=== PATIENT | female | born 1960 | race Caucasian/White ===

== ENCOUNTER → 2017-07-10 | Outpatient (CLI) | payer OTHER ==
[~2017-07-10] MED LIST: ALBUAER3 INH; LEVA750T9 PO; SYMB80AE INH
--- NOTE | 2017-07-13 10:38 | RSPPFT ---
DATE OF PROCEDURE: 07/10/17 COMMENTS: Spirometry with FVC of 2.5, FEV1 of 1.4, FEV1/FVC ratio at 56% of predicted. Slow vital capacity is 58% of predicted. TLC is 100%. Diffusion capacity is 47% of predicted. IMPRESSION: 1. Moderately severe airways obstruction. 2. Positive and significant response to acutely inhaled bronchodilator. 3. No evidence of airways restriction. 4. Moderate reduction in diffusion capacity.
== END ==
LOC: HRSP 11:26
PROVIDERS: ATTEND Specialist
DX: J44.9 Chronic obstructive pulmonary disease, unspecified (principal)
CPT/HCPCS: 94060; 94726; 94729

== ENCOUNTER 2017-07-29 09:35 | Inpatient (IN) | payer OTHER ==
[2017-07-29 09:48] VITALS: BP 123/95; PULSE 82; RESP 18; TEMP 97.7; O2SAT 96
[2017-07-29] MEDS ORDERED: LORA-392 PO (09:56)
[2017-07-29] MEDS ORDERED: NICO21DI2 T-DERMAL (09:57)
[2017-07-29 10:00] VITALS: PULSE 96
--- NOTE | 2017-07-29 11:07 | MH ---
cc: MELI DIXON M.D. DATE OF ADMISSION: 07/29/2017 DATE OF 1960 ADMISSION DIAGNOSES 1. Locally advanced nql-wdndu-pdai lung cancer. 2. Chronic tobacco use. 3. COPD. 4. Cardiomyopathy, EF of 20%. CHIEF COMPLAINT Shortness of breath. HISTORY OF PRESENT ILLNESS Ms. Sam is a 56-year-old woman with a history of chronic tobacco use. She presents with unintentional weight loss, COPD exacerbation in a hilar mass. She underwent bronchoscopic evaluation and was diagnosed with a non-small cell lung cancer, adenocarcinoma poorly differentiated. She was referred to Dr. Ahumada. During workup she was found to have elevated BNP and echo showed a decrease in ejection fraction to 20-25%. Ms. Sam denies any prior history of coronary artery disease. She has no prior history of CT. This made her not eligible for definitive lung resection. She has had progressive symptoms of shortness of breath attributed to her COPD but in light of her cardiomyopathy she is admitted for further cardiac evaluation. She denies any fevers, chills or night sweats. She has progressive weight loss. She is unable to work because of her respiratory symptoms. She reports occasional chest pain atypical in nature. She denies any urinary complaints. No headaches. No vision changes. She is very anxious about her diagnosis of lung cancer and is eager to have definitive treatment. PAST MEDICAL HISTORY 1. Anxiety. 2. COPD. 3. Thyroid disease. 4. Locally advanced wdb-npwhw-ljgh lung cancer unresectable due to cardiac issue. PAST SURGICAL HISTORY 1. . 2. Colposcopy. FAMILY HISTORY She is adopted. No family history known. SOCIAL HISTORY She is /has significant other. She continues to smoke. She denies any illicit drug use. She drinks alcohol occasionally. PHYSICAL EXAMINATION VITAL SIGNS: Temperature 97.7 heart rate 82, respiratory 18, blood pressure 123/95, saturation 96%. GENERAL: Ms. Sam is a slender, tall woman who looks anxious. She looks older than stated age. HEENT: Her pupils are round, reactive to light and accommodation. Oropharynx is clear. NECK: Supple. LUNGS: With diminished breath sounds throughout. No wheezing. CARDIOVASCULAR: Exam reveals normal rate and rhythm. ABDOMEN: Benign. LOWER EXTREMITIES: With no edema. NEUROLOGICAL: Exam is nonfocal. ALLERGIES No known drug allergies. CURRENT MEDICATIONS 1. Nicotine 2. Symbicort. 3. Albuterol. 4. Lorazepam p.r.n. ASSESSMENT AND PLAN Ms. Sam is a 56-year-old woman with chronic tobacco use, severe COPD, left hilar mass diagnosed with a poorly differentiated non-small cell lung cancer. She has a decrease in ejection fraction. She had increasing symptoms of shortness of breath and atypical chest symptoms. In light of her decreased ejection fraction she is admitted to the hospital for further evaluation. Treatment for COPD will be optimized. Respiratory treatments, inhaled steroids as well as albuterol/DuoNebs will be administered. BNP, troponin-I, EKG and cardiology will be consulted to evaluate the cardiomyopathy. Defer to cardiology for further recommendations for the cardiomyopathy. Her non-small cell lung cancer is being considered for treatment with concurrent chemotherapy and radiation. The safety of chemotherapy depends on the cardiomyopathy. We will consider concurrent chemotherapy and radiation with carboplatin and Taxol pending of course findings from Cardiology and their recommendations. Meli Dixon MD RAD/RUPESH /10:41 AM /10:54 AM
[2017-07-29] MEDS: LORazepam 0.5 MG TAB PO PRN ×2 (11:34→20:08)
[2017-07-29 11:39] VITALS: BP 156/112; PULSE 71; RESP 18; TEMP 97.7; O2SAT 97
[2017-07-29 12:00] LABS: AUTOMATED NEUTROPHIL # 4.6 TH/MM3 (1.8-7.7); BASOPHIL # 0.1 TH/MM3 (0-0.2); BASOPHIL % 0.8 % (0.0-2.0); EOSINOPHIL # 0.1 TH/MM3 (0-0.4); HEMO FLAGS DIFF FINAL; LYMPH % 27.1 % (9.0-44.0); MEAN CELL VOLUME 103.9 FL (80.0-100.0); MEAN CORPUSCULAR HEMOGLOBIN 35.8 PG (27.0-34.0); MEAN CORPUSCULAR HGB CONC 34.4 % (32.0-36.0); MONO % 6.7 % (0.0-8.0); NEUT % 63.4 % (16.0-70.0); PLATELET COUNT 129 TH/MM3 (150-450); RED BLOOD COUNT 4.14 MIL/MM3 (4.00-5.30); RED CELL DISTRIBUTION WIDTH 14.1 % (11.6-17.2); WHITE BLOOD COUNT 7.3 TH/MM3 (4.0-11.0)
[2017-07-29] MEDS ORDERED: ALBUTEROL SULFATE 90 MCG/ACT HFA 8 GM INHALER INH PRN (12:00)
[2017-07-29] MEDS ORDERED: PROCHLORPERAZINE INJ 10 MG/2 ML VIAL IV PUSH PRN (12:00)
[2017-07-29] MEDS ORDERED: ALTEPLASE RECOMBINANT 2 MG VIAL IVF PRN (12:00)
[2017-07-29] MEDS ORDERED: ACETAMINOPHEN 325 MG TAB PO PRN (12:00)
[2017-07-29] MEDS ORDERED: ALUMINUM/MAGNESIUM/SIMETH 30 ML CUP PO PRN (12:00)
[2017-07-29] MEDS ORDERED: MAGNESIUM HYDROXIDE SUSP 30 ML CUP PO PRN (12:00)
[2017-07-29 12:25] LABS: ALKALINE PHOSPHATASE 83 U/L (45-117); TOTAL BILIRUBIN ADULT 0.5 MG/DL (0.2-1.0)
[2017-07-29] MEDS ORDERED: ENALAPRILAT 1.25 MG/ML VIAL IV PUSH PRN (13:00)
[2017-07-29 13:51] LABS: ALT (GPT) 19 U/L (10-53); ANION GAP 6 MEQ/L (5-15); AST (GOT) 15 U/L (15-37); BICARBONATE 27.9 MEQ/L (21.0-32.0); BLOOD UREA NITROGEN 13 MG/DL (7-18); CHLORIDE 106 MEQ/L (98-107); GLOMERULAR FILTRATION RATE 74 ML/MIN (>89); POTASSIUM 3.5 MEQ/L (3.5-5.1); SODIUM (NA) 140 MEQ/L (136-145)
[2017-07-29] MEDS: LISINOPRIL 10 MG TAB PO SCH (13:51)
--- NOTE | 2017-07-29 14:46 | EKG ---
Date Performed: 07/29/2017 Time Performed: 11:05:52 PTAGE: 56 years EKG: Sinus rhythm . Possible left atrial abnormality Possible inferior infarct - age undetermined Left ventricular hype rtrophy Lateral ST-T changes are probably due to ventricular hypertrophy Abnormal ECG NO PREVIOUS TRACING DOCTOR: Omer Jain Interpretating Date/Time 07/29/2017 14:44:53
--- NOTE | 2017-07-29 15:17 | MB ---
cc: KILEY ORONA DATE OF CONSULTATION 07/29/2017 HISTORY OF PRESENT ILLNESS Ms. Sam is a 56-year-old white female with a history of smoking and recently diagnosed non-small cell lung cancer, poorly differentiated adenocarcinoma. Her echocardiogram showed an ejection fraction of 20-25%. She has no angina. She has progressive shortness of breath. She has not had peripheral edema. She has mild dizziness. PAST MEDICAL HISTORY 1. COPD. 2. Thyroid disease. 3. Locally advanced non-small cell lung adenocarcinoma. 4. Anxiety. 5. . MEDICATIONS 1. Lorazepam. 2. Albuterol. 3. Symbicort. 4. Nicotine ALLERGIES None. SOCIAL HISTORY The patient is a smoker. She drinks alcohol occasionally. FAMILY HISTORY Unknown since the patient is adopted. REVIEW OF SYSTEMS Otherwise negative. PHYSICAL EXAMINATION VITAL SIGNS: Blood pressure 156/112, pulse 71 and regular. HEENT: Negative. 2+ carotid upstrokes. No bruits. LUNGS: Clear. HEART: Regular with no murmur, gallop or rub. ABDOMEN: Soft. No bruits. EXTREMITIES: Without edema. 2+ distal pulses. NEUROLOGIC: Grossly nonfocal. EKG EKG was reviewed and showed normal sinus rhythm, left atrial enlargement, small inferior Q-waves, LVH with ST-T changes. LABORATORY Hemoglobin 14. Troponin less than 0.02. DIAGNOSIS 1. Congestive heart failure. 2. Cardiomyopathy with severe left ventricular systolic dysfunction. 3. COPD. 4. Hypertension. 5. Smoking. 6. Lung cancer. DISPOSITION Ms. Sam will be started on a beta torey and ALEXEI inhibitor for her congestive heart failure. We will obtain myocardial perfusion study tomorrow to evaluate for significant ischemia. She will be monitored on telemetry. I will follow her for cardiology during her hospital stay. MD PARKER Wing/CORTES /1:37 PM /3:00 PM MTDRebecca
[2017-07-29 15:38] VITALS: BP 128/88; PULSE 90; RESP 18; TEMP 98.5; O2SAT 95
[2017-07-29 20:05] VITALS: BP 116/78; PULSE 84; RESP 18; TEMP 97.8; O2SAT 96
[2017-07-29] MEDS: CARVEDILOL 6.25 MG TAB PO SCH (20:08)
[2017-07-29] MEDS ORDERED: BUDESONIDE-FORMOTEROL 80/4.5 MCG INHALER INH SCH (21:00)
[2017-07-30 00:01] VITALS: PULSE 65
[2017-07-30 00:26] VITALS: BP 111/77; PULSE 81; RESP 21; TEMP 98; O2SAT 95
[2017-07-30 04:12] VITALS: PULSE 68
[2017-07-30 05:24] VITALS: BP 115/82; PULSE 83; RESP 18; TEMP 98.5; O2SAT 97
[2017-07-30] MEDS: LORazepam 0.5 MG TAB PO PRN ×2 (05:29→18:35)
[2017-07-30 08:00] VITALS: PULSE 75
[2017-07-30] MEDS ORDERED: REMOVE OLD PATCH T-DERMAL SCH (09:00)
[2017-07-30] MEDS ORDERED: DEXT 5%-NACL 0.9% 1000 ML INJ 1,000 ML IV SCH (09:00)
[2017-07-30] MEDS ORDERED: NICOTINE 21 MG/24 HR PATCH T-DERMAL SCH (09:00)
[2017-07-30] MEDS: CARVEDILOL 6.25 MG TAB PO SCH (10:41)
[2017-07-30] MEDS: LISINOPRIL 10 MG TAB PO SCH (10:41)
[2017-07-30 10:43] VITALS: BP 108/82; PULSE 80; RESP 14; TEMP 98.5; O2SAT 94
--- NOTE | 2017-07-30 12:15 | PD.ONC.PN ---
Subjective Subjective Remarks No chest pain. SoB, agree to try breathing treatment. Objective Data Date Time Temp Pulse Resp B/P (MAP) Pulse Ox O2 Delivery O2 Flow Rate FiO2 07/30/17 10:43 98.5 80 14 108/82 (91) 94 07/30/17 05:24 98.5 83 18 115/82 (93) 97 07/30/17 04:12 68 07/30/17 00:26 98.0 81 21 111/77 (88) 95 07/30/17 00:01 65 07/29/17 20:05 97.8 84 18 116/78 (91) 96 07/29/17 20:05 84 07/29/17 15:38 98.5 90 18 128/88 (101) 95 Result Diagram: 07/29/17 1130 07/29/17 1314 Laboratory Results Laboratory Tests Test 07/29/17 13:14 Blood Urea Nitrogen 13 MG/DL Creatinine 0.80 MG/DL Random Glucose 102 MG/DL Total Protein 6.9 GM/DL Albumin 3.6 GM/DL Calcium Level 8.6 MG/DL Alkaline Phosphatase 83 U/L Aspartate Amino Transf (AST/SGOT) 15 U/L Alanine Aminotransferase (ALT/SGPT) 19 U/L Total Bilirubin 0.5 MG/DL Sodium Level 140 MEQ/L Potassium Level 3.5 MEQ/L Chloride Level 106 MEQ/L Carbon Dioxide Level 27.9 MEQ/L Anion Gap 6 MEQ/L Estimat Glomerular Filtration Rate 74 ML/MIN Troponin I LESS THAN 0.02 NG/ML Administered Medications Medications (Trade) Dose Ordered Sig/Christine Route PRN Reason Start Time Stop Time Status Last Admin Dose Admin Lorazepam (Ativan) 0.5 mg Q8H PRN PO ANXIETY AND/OR AGITATION 07/29/17 12:00 07/30/17 05:29 Nicotine (Habitrol 21 Mg Patch.24 Hr) 1 patch DAILY T-DERMAL 07/30/17 09:00 07/30/17 10:41 Miscellaneous Information 1 DAILY T-DERMAL 07/30/17 09:00 07/30/17 09:00 Carvedilol (Coreg) 6.25 mg Q12HR PO 07/29/17 21:00 07/30/17 10:41 Lisinopril (Prinivil) 10 mg DAILY PO 07/29/17 14:00 07/30/17 10:41 Objective Remarks GENERAL: Slender cachectic, well-developed patient. SKIN: Warm and dry. HEAD: Normocephalic. EYES: No scleral icterus. No injection or drainage. NECK: Supple, trachea midline. No JVD or lymphadenopathy. LYMPHATIC: No adenopathy. CARDIOVASCULAR: Regular rate and rhythm without murmurs. RESPIRATORY: Breath sounds equal bilaterally. No accessory muscle use. GASTROINTESTINAL: Abdomen soft, non-tender, nondistended. EXTREMITIES: No cyanosis, or edema. MUSCULOSKELETAL: Adequate muscle tone. NEUROLOGICAL: No obvious focal deficit. Awake, alert, and oriented x3. PSYCHIATRIC: Appropriate mood and affect; insight and judgment normal. Assessment/Plan Problem List: (1) Cardiomyopathy ICD Codes: I42.9 - Cardiomyopathy, unspecified Status: Acute Plan: Newly dx, unknown duration or etiology. Undergoing cardiac evaluation, pending recommendations from Dr. Castle after stress testing. (2) Tobacco abuse ICD Codes: Z72.0 - Tobacco use Status: Chronic Plan: Nicotine patch. Assessment 56 y/o woman with long h/o tobacco use, dx with NSCLCA, and Cardiomyopathy. Admitted for SOB evaluation to r/o cardiac source. Plan 1. Duonebs 2. Tx with concurrent chemo XRT as out pt for NSCLCA 3. IVF maintenance while NPO. Addendum: Discussed w/ cardiology. NO reversible cause for cardiomyopathy. We will DC home on medical therapy and FU w/ cardiology w/ repeat ECHO in 3months. In the mean time OK to proceed with tx for lung cancer as planned. Yara Johansen MD Jul 30, 2017 12:15
[2017-07-30] MEDS ORDERED: REGADENOSON INJ 0.4 MG/5 ML SYR ONE (13:12)
[2017-07-30] MEDS: RESP: ALBUTEROL 2.5 MG/IPRATROPIUM 0.5 MG NEB (SCH) NEB ×2 (14:00→20:00)
--- NOTE | 2017-07-30 14:52 | RADRPT ---
EXAM DATE/TIME: 07/30/2017 13:05 [facility] COMPARISON: No previous studies available for comparison. INDICATIONS : Congestive heart failure. DOSE: 25.2 mCi Tc99m Myoview at stress. 8.1 mCi Tc99m Myoview at rest. 0.4 mg Lexiscan STRESS SYMPTOMS: Shortness of breath. EJECTION FRACTION: 21% MEDICAL HISTORY : Chronic obstructive pulmonary disease. Hypertension. SURGICAL HISTORY : section. ENCOUNTER: Initial ACUITY: 1 day PAIN SCALE: 3/10 LOCATION: Bilateral chest TECHNIQUE: The patient underwent pharmacologic stress with infusion of prescribed dose. Continuous ECG tracing was monitored during stress. Gated SPECT imaging was performed after stress and conventional SPECT i maging was performed at rest. The examination was performed on a SPECT/CT scanner, both attenuation and non-corrected datasets were reviewed. FINDINGS: DISTRIBUTION: The maximum perfused segment at stress is in the mid septal> wall. PERFUSION STUDY: Large areas of low perfusion involving the lateral and posterior chacon. They're fixed to stress and r est. GATED STUDY: There is global hypokinesis. CONCLUSION: Decrease perfusion fixed at rest and stress of the circumflex and right coronary distribution. I don' t see any evidence of ischemia. Global hypokinesis with ejection fraction 21%. RISK CATEGORY: High (>3% Annual Mortality Rate) Jc Bynum MD on July 30, 2017 at 14:49 Board Certified Radiologist. This report was verified electronically.
--- NOTE | 2017-07-30 17:36 | PD.CARD.PN ---
Subjective Subjective Remarks No CP, mild SOB, nuc ST with no evidence of ischemia Objective Medications Current Medications Medications (Trade) Dose Ordered Sig/Christine Route Start Time Stop Time Status Last Admin (Milk Of Magnesia Liq) 15 ml DAILY PRN PO 07/29/17 12:00 (Compazine Inj) 10 mg Q4H PRN IV PUSH 07/29/17 12:00 (Mag-Al Plus Susp Liq) 30 ml Q4H PRN PO 07/29/17 12:00 (Cathflo Activase Inj) 2 mg UNSCH PRN IVF 07/29/17 12:00 (Tylenol) 650 mg Q4H PRN PO 07/29/17 12:00 (Proair Hfa Inh) 2 puff Q6H PRN INH 07/29/17 12:00 (Symbicort 80-4.5 Mcg Inh) 2 puff Q12HR INH 07/29/17 21:00 (Ativan) 0.5 mg Q8H PRN PO 07/29/17 12:00 07/30/17 05:29 (Habitrol 21 Mg Patch.24 Hr) 1 patch DAILY T-DERMAL 07/30/17 09:00 07/30/17 10:41 Miscellaneous Information 1 DAILY T-DERMAL 07/30/17 09:00 07/30/17 09:00 (Coreg) 6.25 mg Q12HR PO 07/29/17 21:00 07/30/17 10:41 (Prinivil) 10 mg DAILY PO 07/29/17 14:00 07/30/17 10:41 Dextrose/Sodium Chloride 1,000 ml @ 50 mls/hr Q20H IV 07/30/17 09:00 (Duoneb Neb) 1 ampule Q6HR WHILE AWAKE NEB NEB 07/30/17 14:00 Vital Signs / I&O Vital Signs Date Time Temp Pulse Resp B/P (MAP) Pulse Ox O2 Delivery O2 Flow Rate FiO2 07/30/17 10:43 98.5 80 14 108/82 (91) 94 07/30/17 05:24 98.5 83 18 115/82 (93) 97 07/30/17 04:12 68 07/30/17 00:26 98.0 81 21 111/77 (88) 95 07/30/17 00:01 65 12/20/17 20:05 97.8 84 18 116/78 (91) 96 07/29/17 20:05 84 I/O 07/29/17 07/29/17 07/29/17 07/30/17 07/30/17 07/30/17 07:00 15:00 23:00 07:00 15:00 23:00 Intake Total 720 ml Balance 720 ml Intake Oral 720 ml # Voids 1 # Bowel Movements 1 Physical Exam GENERAL: In NAD SKIN: Warm and dry. HEAD: Normocephalic. EYES: No scleral icterus. No injection or drainage. NECK: Supple, trachea midline. No JVD or lymphadenopathy. CARDIOVASCULAR: Regular rate and rhythm without murmurs, gallops, or rubs. RESPIRATORY: Breath sounds equal bilaterally. No accessory muscle use. GASTROINTESTINAL: Abdomen soft, non-tender, nondistended. MUSCULOSKELETAL: No cyanosis, or edema. Imaging Last 24 hours Impressions Myocardial Perfusion Scan Nuc Med 07/30/17 0000 Signed Impressions: Service Date/Time: July 13:05 - CONCLUSION: Decrease perfusion fixed at rest and stress of the circumflex and right coronary distribution. I don't see any evidence of ischemia. Global hypokinesis with ejection fraction 21%%. RISK CATEGORY: High (>3%% Annual Mortality Rate) Jc Bynum MD Assessment and Plan Problem List: (1) CHF (congestive heart failure) ICD Codes: I50.9 - Heart failure, unspecified (2) Cardiomyopathy ICD Codes: I42.9 - Cardiomyopathy, unspecified Status: Acute (3) Lung mass ICD Codes: R91.8 - Other nonspecific abnormal finding of lung field (4) AAA (abdominal aortic aneurysm) ICD Codes: I71.4 - Abdominal aortic aneurysm, without rupture Status: Acute (5) Tobacco abuse ICD Codes: Z72.0 - Tobacco use Status: Chronic (6) COPD (chronic obstructive pulmonary disease) ICD Codes: J44.9 - Chronic obstructive pulmonary disease, unspecified Assessment and Plan Nuc ST with fixed lat and inf defects, no evidence of ischemia, EF 21%. Continue and titrate medical tx for CHF including beta torey and ALEXEI-I. Increase activity. Tremayne Castle MD Jul 30, 2017 17:36
[2017-07-30] MEDS ORDERED: CARV6.25 PO (18:44)
[2017-07-30] MEDS ORDERED: LISI10TA3 PO (18:44)
--- NOTE | 2017-07-30 18:45 | HHI.DS ---
Discharge Summary Admission Date Jul 29, 2017 at 09:35 Admitting Diagnosis CBC/BMP: 07/29/17 1130 07/29/17 1314 Significant Findings Laboratory Tests Test 07/29/17 11:30 07/29/17 13:14 Mean Corpuscular Volume 103.9 FL (80.0-100.0) Mean Corpuscular Hemoglobin 35.8 PG (27.0-34.0) Platelet Count 129 TH/MM3 (150-450) Estimat Glomerular Filtration Rate 74 ML/MIN (>89) Troponin I LESS THAN 0.02 NG/ML Pt Condition on Discharge: Stable Discharge Disposition: Discharge Home Discharge Instructions DIET: Follow Instructions for: Heart Healthy Diet Activities you can perform: Regular-No Restrictions Other Activity Instructions: As tolerated. Yara Johansen MD Jul 30, 2017 18:45
[2017-07-31] MEDS ORDERED: LISINOPRIL 10 MG TAB PO SCH (09:00)
== END 2017-07-30 19:45 | disposition home or self-care (01) | DRG 315 ==
LOC: HCIN 09:35
PROVIDERS: ADMIT Internal Medicine Hematology & Oncology; ATTEND Internal Medicine Hematology & Oncology
DX: I42.9 Cardiomyopathy, unspecified (principal); R64 Cachexia; I11.0 Hypertensive heart disease with heart failure; I50.9 Heart failure, unspecified; C34.90 Malignant neoplasm of unspecified part of unspecified bronchus or lung; J44.9 Chronic obstructive pulmonary disease, unspecified; F17.210 Nicotine dependence, cigarettes, uncomplicated; I71.4 Abdominal aortic aneurysm, without rupture; E07.9 Disorder of thyroid, unspecified; F41.9 Anxiety disorder, unspecified
CPT/HCPCS: 78452; 80053; 84484; 85025; 93005; 93017; A9502; J2785; J7042

== ENCOUNTER 2017-08-17 06:23 | Day surgery (SDC) | payer OTHER ==
[~2017-08-17] VITALS: Ht 172.7 cm; Wt 48.6 kg
[2017-08-17] VITALS (8 sets, daily range): BP systolic 119–137; BP diastolic 86–94; PULSE 75–86; RESP 16–20; TEMP 97.9–98; O2SAT 89–98
[~2017-08-17 06:23] MED LIST changes: +CARV6.25 PO; -LEVA750T9 PO; +LISI10TA3 PO
[2017-08-17] MEDS ORDERED: TRAM50TA PO (07:01)
[2017-08-17] MEDS ORDERED: LORA-392 PO (07:01)
[2017-08-17] MEDS ORDERED: TYLETAB34 PO (07:01)
[2017-08-17] MEDS ORDERED: CHLORHEXIDINE GLUCONATE 2 % 1 PACK (2 CLOTHS) TOPICAL SCH (07:30)
[2017-08-17] MEDS ORDERED: POVIDONE IODINE 5% (ANTISEPSIS KIT) 4 APPLICATIONS EACH NARE SCH (07:30)
[2017-08-17] MEDS ORDERED: ceFAZolin 2 GM PREMIX 50 ML - gastrostomy and jejunostomy initial insertion IV SCH (07:30)
[2017-08-17] MEDS ORDERED: SODIUM CHLORIDE 0.9% 1000 ML IV SCH (07:30)
[2017-08-17] MEDS ORDERED: ceFAZolin 2 GM PREMIX 50 ML - implanted port/tunneled catheter insertion IV SCH (07:30)
[2017-08-17] MEDS ORDERED: VANCOMYCIN 1000 MG/NS 250 ML - implanted port/tunneled catheter IV SCH ×2 (07:30)
[2017-08-17 07:41] LABS: HEMATOCRIT 50.6 % (35.0-46.0); HEMOGLOBIN 17.6 GM/DL (11.6-15.3); MEAN CELL VOLUME 102.7 FL (80.0-100.0); MEAN CORPUSCULAR HEMOGLOBIN 35.7 PG (27.0-34.0); MEAN CORPUSCULAR HGB CONC 34.8 % (32.0-36.0); MEAN PLATELET VOLUME 8.6 FL (7.0-11.0); PLATELET COUNT 159 TH/MM3 (150-450); RED BLOOD COUNT 4.92 MIL/MM3 (4.00-5.30); RED CELL DISTRIBUTION WIDTH 13.8 % (11.6-17.2); WHITE BLOOD COUNT 6.5 TH/MM3 (4.0-11.0)
[2017-08-17 07:50] LABS: INTERNATIONAL NORMALIZED RATIO 1.1 RATIO; PROTHROMBIN TIME - PATIENT 11.1 SEC (9.8-11.6)
[2017-08-17] MEDS ORDERED: MIDAZOLAM HCL 2 MG/2 ML VIAL ONE ×2 (08:01→08:53)
[2017-08-17] MEDS ORDERED: diphenhydrAMINE HCL 50 MG/ML VIAL ONE (08:15)
[2017-08-17] MEDS ORDERED: SODIUM CHLORIDE 0.9% FLUSH 10 ML FLUSH IVF PRN (09:15)
--- NOTE | 2017-08-17 09:17 | PD.RAD ---
Post Procedure Progress Note Pre Procedure Diagnosis: (1) Lung mass Post Procedure Diagnosis: (1) Lung mass Procedure Date: Aug 17, 2017 Supervising Radiologist: Mir Sharma Proceduralist/Assist: Andrei Hancock RT(R), RT Shmuel(R) Anesthesia: Local, Analgesia, Conscious Sedation Plan of Activity Patient to Unit: ROPU Patient Condition: Good See PACS Report for procedural detail/treatment Central Venous Access Device Procedure 1 Right Internal Jugular Infusaport Placement single lumen [place]: 8 Mir Sharma MD Aug 17, 2017 09:17
--- NOTE | 2017-08-17 11:20 | RADRPT ---
EXAM DATE/TIME: 08/17/2017 09:32 [facility] COMPARISON: No previous studies available for comparison. INDICATIONS : Patient with left lung mass in need of Horia-f-Gukt placement. MEDICAL HISTORY : Cardiomyopathy, COPD, Thyroid disease, Left hilar mass, Chronic tobacco use, HTN, CHF SURGICAL HISTORY : Colposcopy, Lung biopsy ENCOUNTER: Initial ACUITY: 1 month PAIN SCORE: 0/10 FLUORO TIME: 0.4 minutes IMAGE SERIES: 1 SEDATION TIME: 40 minutes ACCESS: Right internal jugular vein SEDATION: 1.) 5 mg midazolam (Versed) IV 2.) 250 mcg fentanyl (Sublimaze) IV 3.) 25mg Benadryl IV Prophylactic antibiotics were administered with appropriate pre-procedure timing. Vancomycin within 2 hours of procedure, Ancef (or alternative) within 1 hour of procedure. DEVICE: 1. 8 [place] single lumen Smart power port with vortex PROCEDURE : 1. Continuous pulse oximetry and EKG monitoring. 2. Intravenous conscious sedation. 3. Ultrasound guidance for venous access. 4. Fluoroscopic guided implantable central venous port placement. The patient was placed supine. The neck was prepped in sterile fashion. Full sterile technique was u sed, including cap, mask, sterile gloves and gown, and a large sterile sheet. Hand hygiene and 2% ch lorhexidine Betadine was utilized per protocol for cutaneous antisepsis with appropriate dry time for site. Sterile gel and sterile probe cover were utilized for ultrasound guidance. The skin and sub cutaneous tissues were infiltrated with local anesthetic solution. Under direct ultrasound guidance, central venous access was accomplished in the targeted vessel. The ultrasound images depicting access guidance were stored and saved to PACS for permanent record. A s ubcutaneous pocket was created using blunt dissection. The port was introduced to the pocket. The c atheter tubing was fed through a subcutaneous tunnel to the venotomy site. The catheter tubing was c ut to a suitable length and then was introduced through a valved Peel-Away sheath and positioned with catheter tubing tip at the cavo-atrial junction level. The pocket incision was closed with subcutic ular Vicryl suture. Steri-Strips were applied. The port was flushed and locked with heparin solutio n per protocol. Sterile dressing was applied to the site. The patient tolerated the procedure well. Conscious sedation was performed with the prescribed dosages and duration as above in the presence of an independent trained radiology nurse to assist in the monitoring of the patient. EKG and oximetry remained stable throughout the procedure. The patient tolerated the procedure well and there were no complications. The patient was sent to post anesthesia recovery in stable condition. CONCLUSION: Uncomplicated ultrasound and fluoroscopic guided implanted central venous port catheter placement as described in detail above. An 8 [place] Power port was placed. Mir Sharma MD on August 17, 2017 at 11:18 Board Certified Radiologist. This report was verified electronically.
[2017-08-17] MEDS ORDERED: oxyCODONE/ACETAMINOPHEN 10 MG/325 MG TAB PO ONE (12:00)
== END 2017-08-17 13:05 | disposition home or self-care (01) ==
LOC: HROP 06:23 → HRIP 06:24 → HROP 13:05
PROVIDERS: ATTEND Internal Medicine Hematology & Oncology
DX: Z45.2 Encounter for adjustment and management of vascular access device (principal); C34.90 Malignant neoplasm of unspecified part of unspecified bronchus or lung; J44.9 Chronic obstructive pulmonary disease, unspecified; I11.0 Hypertensive heart disease with heart failure; I42.9 Cardiomyopathy, unspecified; I50.9 Heart failure, unspecified
CPT/HCPCS: 36561; 76937; 77001; 85027; 85610; 85730; 99152; 99153; C1788; J0690; J1200; J1642; J2250; J3010; J3370; J7030; J7050; J1644